=== PATIENT | female | born 1955 | race Caucasian/White ===

== ENCOUNTER → 2016-02-23 | Outpatient (CLI) | payer OTHER ==
--- NOTE | 2016-02-23 19:49 | Diagnostic Imaging Report ---
INDICATION: Abnormality seen on mammogram dated 02/05/2016 EXAMINATION: Right breast diagnostic mammogram dated 02/23/2016 with correlation made to previous mammograms including 02/05/2016 and 03/05/2012 The current study was also evaluated with a Computer Aided Detection (CAD) system. FINDINGS: The right breast was further evaluated with spot compression imaging and a true lateral view. There are nodular densities within the upper half of the breast. Sonogram of the upper half of the breast was performed. Benign-appearing findings correspond to these densities with no suspicious abnormalities appreciated. Therefore, patient may return to yearly evaluation. IMPRESSION: 1. Densities on mammography appear to correspond to benign-appearing findings sonographically. Patient may return to yearly screening. ACR BI-RADS Category 2: Benign findings. Result letter will be mailed to the patient. Note: At least 10% of breast cancer is not imaged by mammography. Dictated by: Dictated on workstation # [id number]
--- NOTE | 2016-02-23 20:41 | Diagnostic Imaging Report ---
INDICATION: Density on screening mammography EXAMINATION: Right breast sonogram dated 02/23/2016. FINDINGS: Grayscale and color doppler ultrasound imaging of the upper half of the breast was performed. At 10:00 o'clock, 2 cm from the nipple, there are multiple cystic areas noted, all which have a benign appearance. The conglomerate measures 1.1 x 0.9 x 0.47 cm in size. At 11:00 o'clock, 2 cm from the nipple, there is a cystic-appearing area measuring 0.4 x 0.47 cm. A small hypoechoic area at 10:00 o'clock, 3 cm from the nipple is also noted 0.3 cm in greatest dimension. All these findings have a benign appearance and one of these, if not a combination of several of these findings, likely caused the density seen on screening mammography. These findings are considered benign and the patient may return to yearly screening. IMPRESSION: All these findings have a benign appearance and one of these, if not a combination of several of these findings, likely caused the density seen on screening mammography. These findings are considered benign and the patient may return to yearly screening. ACR category 2 ACR BI-RADS Category 2: Benign findings. Result letter will be mailed to the patient. Note: At least 10% of breast cancer is not imaged by mammography. Dictated by: Dictated on workstation # [id number]
== END ==
LOC: RAD 10:54
PROVIDERS: ATTEND Family Medicine
DX: N64.59 Other signs and symptoms in breast (principal)
CPT/HCPCS: 76642; G0206